=== PATIENT | male | born 1990 | race Caucasian/White ===

== ENCOUNTER 2020-10-24 03:49 | Emergency (ER) | payer BC ==
--- NOTE | 2020-10-24 03:57 | EDM.PDOC ---
ED HPI GENERAL MEDICAL PROBLEM - General Chief Complaint: Respiratory Problem Stated Complaint: COVID POSITIVE Time Seen by Provider: 10/24/20 03:50 Source of Information: Reports: Patient History Limitations: Reports: No Limitations - History of Present Illness INITIAL COMMENTS - FREE TEXT/NARRATIVE: 30-year-old male with no PMHx presents with COVID symptoms. He started devel oping symptoms on 10/14, including fever, chills, headache, generalized malaise, cough. He was tested positive on 10/19, followed by left upper quadrant pain and 5 episodes of watery bloody diarrhea on 10/20, along with 3 episodes of nonbloody vomitus after heavy coughing, decreased appetite, changes in smell. He has not been able to sleep over the last 2 days despite his generalized malaise citing his mind races in his sleep. He went to respiratory clinic on 10/19 and was prescribed dexamethasone and azithromycin which he stopped after seeing the bloody diarrhea. He has only been taking Tylenol and multivitamin since. ROS: A 10-point review of systems, other than pertinent positives and negatives as stated per HPI, is otherwise negative Past medical history: No additional pertinent history Past Surgical history: No additional pertinent history Social history: No additional pertinent history Family history: No additional pertinent history PHYSICAL EXAM General: AOx4, GCS = 15, no distress HEENT: dry mucous membrane Neck: supple, no meningismus, no Kernig or Brudzinski Cardiac: S1S2 tachycardia Respiratory: CTAB, no crackles or rales, no wheezing, no retraction, no tachypnea, no respiratory distress. Abdomen: Soft, mild LUQ ttp, no rebound or guarding, nondistended, no pulsatile mass. Back: nontender Musculoskeletal: NVI distally, no deformity Neuro: No focal deficits ULQ Pain Score (Numeric/FACES): 2 - Related Data Allergies Allergy/AdvReac Type Severity Reaction Status Date / Time No Known Allergies Allergy Verified 10/24/20 04:05 Home Meds: Home Meds Azithromycin [Zithromax] 0 mg PO DAILY 10/24/20 [History] Benzonatate 100 mg PO BID #10 capsule 10/24/20 [Rx] Omeprazole Magnesium [Prilosec Otc] 20 mg PO BID #30 tablet. 10/24/20 [Rx] dexAMETHasone [Dexamethasone] 0 mg PO ASDIRECTED 10/24/20 [History] ED ROS GENERAL - Review of Systems Review Of Systems: See Below (see dictation) ED EXAM, GENERAL - Physical Exam Exam: See Below (see dictation) #1 Interpretation EKG Interpretation Comments: Heart rate = 99 bpm, normal sinus rhythm, normal QRS interval, no STEMI. EKG and rhythm strip interpreted by me at 0518 Course - Vital Signs Last Recorded V/S: Last Vital Signs Temp 99.9 F 10/24/20 04:07 Pulse 99 10/24/20 05:28 Resp 20 10/24/20 05:28 BP 109/76 10/24/20 05:28 Pulse Ox 92 L 10/24/20 05:28 - Orders/Labs/Meds Orders: Active Orders 24 hr Category Date Time Status EKG Documentation Completion [RC] STAT Care 10/24/20 04:32 Active Nurse Communication: Isolation [RC] ASDIRECTED Care 10/24/20 04:32 Active CULTURE BLOOD [BC] Stat Lab 10/24/20 05:10 Received CULTURE BLOOD [BC] Stat Lab 10/24/20 05:25 Received PROCALCITONIN [REF] Stat Lab 10/24/20 05:10 Received Blood Culture x2 Reflex Set [OM.PC] Stat Oth 10/24/20 04:56 Ordered Isolation [COMM] Stat Oth 10/24/20 04:31 Active Labs: Laboratory Tests 10/24/20 10/24/20 10/24/20 Range/Units 05:10 05:10 05:10 WBC 6.92 (4.0-11.0) K/uL RBC 5.09 (4.50-5.90) M/uL Hgb 15.5 (13.0-17.0) g/dL Hct 44.2 (38.0-50.0) % MCV 86.8 (80.0-98.0) fL MCH 30.5 (27.0-32.0) pg MCHC 35.1 (31.0-37.0) g/dL RDW Std Deviation 39.8 (28.0-62.0) fl RDW Coeff of Asmara 12 (11.0-15.0) % Plt Count 228 (150-400) K/uL MPV 10.10 (7.40-12.00) fL Neut % (Auto) 77.6 (48.0-80.0) % Lymph % (Auto) 16.0 (16.0-40.0) % Beckham % (Auto) 6.1 (0.0-15.0) % Eos % (Auto) 0.0 (0.0-7.0) % Baso % (Auto) 0.3 (0.0-1.5) % Neut # (Auto) 5.4 (1.4-5.7) K/uL Lymph # (Auto) 1.1 (0.6-2.4) K/uL Beckham # (Auto) 0.4 (0.0-0.8) K/uL Eos # (Auto) 0.0 (0.0-0.7) K/uL Baso # (Auto) 0.0 (0.0-0.1) K/uL Nucleated RBC % 0.0 /100WBC Nucleated RBCs # 0 K/uL ESR (0-14) mm/hr INR 1.06 D-Dimer, Quantitative (0.0-0.50) mg/L FEU Lactate (0.20-2.00) mmol/L Sodium 134 L (136-148) mmol/L Potassium 3.2 L (3.5-5.1) mmol/L Chloride 95 L (98-107) mmol/L Carbon Dioxide 25.5 (21.0-32.0) mmol/L BUN 8 (7.0-18.0) mg/dL Creatinine 1.1 (0.8-1.3) mg/dL Est Cr Clr Drug Dosing 99.55 mL/min Estimated GFR (MDRD) > 60.0 ml/min Glucose 99 (74-106) mg/dL Calcium 8.3 L (8.5-10.1) mg/dL Ferritin (26-388) ng/mL Total Bilirubin 0.8 (0.2-1.0) mg/dL Direct Bilirubin 0.20 (0.0-0.5) mg/dL Indirect Bilirubin 0.60 AST 63 H (15-37) IU/L ALT 61 (14-63) IU/L Alkaline Phosphatase 41 L (46-116) U/L Lactate Dehydrogenase 549 H (81-234) U/L Creatine Kinase 1919 H (26-308) U/L Troponin I < 0.050 (0.000-0.056) ng/mL C-Reactive Protein 9.10 H (0.00-0.90) mg/dL Total Protein 7.9 (6.4-8.2) g/dL Albumin 3.6 (3.4-5.0) g/dL Globulin 4.3 H (2.6-4.0) g/dL Albumin/Globulin Ratio 0.8 L (0.9-1.6) 10/24/20 10/24/20 10/24/20 Range/Units 05:10 05:10 05:10 WBC (4.0-11.0) K/uL RBC (4.50-5.90) M/uL Hgb (13.0-17.0) g/dL Hct (38.0-50.0) % MCV (80.0-98.0) fL MCH (27.0-32.0) pg MCHC (31.0-37.0) g/dL RDW Std Deviation (28.0-62.0) fl RDW Coeff of Samara (11.0-15.0) % Plt Count (150-400) K/uL MPV (7.40-12.00) fL Neut % (Auto) (48.0-80.0) % Lymph % (Auto) (16.0-40.0) % Beckham % (Auto) (0.0-15.0) % Eos % (Auto) (0.0-7.0) % Baso % (Auto) (0.0-1.5) % Neut # (Auto) (1.4-5.7) K/uL Lymph # (Auto) (0.6-2.4) K/uL Beckham # (Auto) (0.0-0.8) K/uL Eos # (Auto) (0.0-0.7) K/uL Baso # (Auto) (0.0-0.1) K/uL Nucleated RBC % /100WBC Nucleated RBCs # K/uL ESR (0-14) mm/hr INR D-Dimer, Quantitative 0.80 H (0.0-0.50) mg/L FEU Lactate 1.3 (0.20-2.00) mmol/L Sodium (136-148) mmol/L Potassium (3.5-5.1) mmol/L Chloride (98-107) mmol/L Carbon Dioxide (21.0-32.0) mmol/L BUN (7.0-18.0) mg/dL Creatinine (0.8-1.3) mg/dL Est Cr Clr Drug Dosing mL/min Estimated GFR (MDRD) ml/min Glucose (74-106) mg/dL Calcium (8.5-10.1) mg/dL Ferritin 799 H (26-388) ng/mL Total Bilirubin (0.2-1.0) mg/dL Direct Bilirubin (0.0-0.5) mg/dL Indirect Bilirubin AST (15-37) IU/L ALT (14-63) IU/L Alkaline Phosphatase (46-116) U/L Lactate Dehydrogenase (81-234) U/L Creatine Kinase (26-308) U/L Troponin I (0.000-0.056) ng/mL C-Reactive Protein (0.00-0.90) mg/dL Total Protein (6.4-8.2) g/dL Albumin (3.4-5.0) g/dL Globulin (2.6-4.0) g/dL Albumin/Globulin Ratio (0.9-1.6) 10/24/20 Range/Units 05:10 WBC (4.0-11.0) K/uL RBC (4.50-5.90) M/uL Hgb (13.0-17.0) g/dL Hct (38.0-50.0) % MCV (80.0-98.0) fL MCH (27.0-32.0) pg MCHC (31.0-37.0) g/dL RDW Std Deviation (28.0-62.0) fl RDW Coeff of Samara (11.0-15.0) % Plt Count (150-400) K/uL MPV (7.40-12.00) fL Neut % (Auto) (48.0-80.0) % Lymph % (Auto) (16.0-40.0) % Beckham % (Auto) (0.0-15.0) % Eos % (Auto) (0.0-7.0) % Baso % (Auto) (0.0-1.5) % Neut # (Auto) (1.4-5.7) K/uL Lymph # (Auto) (0.6-2.4) K/uL Beckham # (Auto) (0.0-0.8) K/uL Eos # (Auto) (0.0-0.7) K/uL Baso # (Auto) (0.0-0.1) K/uL Nucleated RBC % /100WBC Nucleated RBCs # K/uL ESR 46 H (0-14) mm/hr INR D-Dimer, Quantitative (0.0-0.50) mg/L FEU Lactate (0.20-2.00) mmol/L Sodium (136-148) mmol/L Potassium (3.5-5.1) mmol/L Chloride (98-107) mmol/L Carbon Dioxide (21.0-32.0) mmol/L BUN (7.0-18.0) mg/dL Creatinine (0.8-1.3) mg/dL Est Cr Clr Drug Dosing mL/min Estimated GFR (MDRD) ml/min Glucose (74-106) mg/dL Calcium (8.5-10.1) mg/dL Ferritin (26-388) ng/mL Total Bilirubin (0.2-1.0) mg/dL Direct Bilirubin (0.0-0.5) mg/dL Indirect Bilirubin AST (15-37) IU/L ALT (14-63) IU/L Alkaline Phosphatase (46-116) U/L Lactate Dehydrogenase (81-234) U/L Creatine Kinase (26-308) U/L Troponin I (0.000-0.056) ng/mL C-Reactive Protein (0.00-0.90) mg/dL Total Protein (6.4-8.2) g/dL Albumin (3.4-5.0) g/dL Globulin (2.6-4.0) g/dL Albumin/Globulin Ratio (0.9-1.6) Meds: Medications Discontinued Medications Generic Name Dose Route Start Last Admin Trade Name Diamante PRN Reason Stop Dose Admin Azithromycin 500 mg 10/24/20 06:22 10/24/20 06:28 Zithromax PO 10/24/20 06:23 500 mg NOW STA Administration Lactated Ringer's 1,000 mls @ 999 mls/hr 10/24/20 04:32 10/24/20 05:08 Ringers, Lactated IV 10/24/20 05:32 999 mls/hr .BOLUS ONE Administration Pantoprazole Sodium 40 mg/ 20 mls @ 420 mls/hr 10/24/20 04:34 10/24/20 05:08 Sodium Chloride IVPUSH 10/24/20 04:36 420 mls/hr ONETIME ONE Administration Azithromycin 500 mg/ Sodium 250 mls @ 250 mls/hr 10/24/20 06:00 Chloride IV ONETIME YANDY Ceftriaxone Sodium/Dextrose 1 50 mls @ 100 mls/hr 10/24/20 05:52 10/24/20 06:28 gm/ Premix IV 10/24/20 06:21 100 mls/hr ONETIME ONE Administration Ondansetron HCl 4 mg 10/24/20 04:32 10/24/20 05:08 Zofran IVPUSH 10/24/20 04:33 4 mg ONETIME ONE Administration - Re-Assessments/Exams Free Text/Narrative Re-Assessment/Exam: 10/24/20 06:55 He is currently stable for discharge. I performed a repeat exam and did not appreciate new abnormal findings. Patient exhibits normal vital signs and is not in respiratory distress, he has no retractions or tachypnea, he can speak full sentences. I did give him IV Abx here, and advised the patient to return to the ER for reevaluation if symptoms worsened, including fever, worsening pain, or any other worrisome symptoms. I instructed the patient to continue taking his dexamethasone and azithromycin as previously prescribed, and to follow up with their PCP within 2-3 days. I informed him of the lung nodule found on CT and requested him to follow-up with his PCP. MEDICAL DECISION MAKING: I reviewed the patients past medical records, lab and radiographic findings. I discussed the case with the patient. My differential diagnosis included: COVID, PNA This patient was evaluated for the symptoms described in the history of present illness. They were evaluated in the context of the global COVID-19 pandemic, which necessitated consideration that the patient might be at risk for infection with the SARS-CoV-2 virus that causes COVID-19. Institutional protocols and algorithms that pertain to the evaluation of patients at risk for COVID-19 are in a state of rapid change based on information released by regulatory bodies including the CDC and federal and state organizations. These policies and algorithms were followed during the patient's care. I wore full PPE, N95, face shield, gown and gloves throughout my evaluation and care of this patient. I recommended home isolation. given home isolation instructions. The patient is well appearing, not in respiratory distress, not hypoxic, no tachyneia, no retractions. I instructed patient to return immediately for worsening symptoms, sob, chest pain, lightheadedness or other concerns. Patient voiced understanding and questions answered. 10/24/20 06:38 Departure - Departure Time of Disposition: 06:50 Disposition: Home, Self-Care 01 Condition: Good Clinical Impression: Pneumonia, COVID-19, Gastritis, Lung nodule - Discharge Information *PRESCRIPTION DRUG MONITORING PROGRAM REVIEWED*: Not Applicable *COPY OF PRESCRIPTION DRUG MONITORING REPORT IN PATIENT KARIN: Not Applicable Prescriptions: Benzonatate 100 mg PO BID #10 capsule Omeprazole Magnesium [Prilosec Otc] 20 mg PO BID #30 tablet. Instructions: COVID-19 Frequently Asked Questions, Gastritis, Adult, [id number], COVID-19, Community-Acquired Pneumonia, Adult, Prevent the Spread of COVID-19 if You Are Sick - CDC, Incidental Abnormal Radiological Finding, Pulmonary Nodule, COVID-19: How to Protect Yourself and Others - CDC Referrals: PCP,None [Primary Care Provider] - Forms: ED Department Discharge Additional Instructions: The need for follow-up, as well as the timing and circumstances, are variable depending upon the specifics of your emergency department visit. If you don't have a primary care physician on staff, we will provide you with a referral. We always advise you to contact your personal physician following an emergency department visit to inform them of the circumstance of the visit and for follow-up with them and/or the need for any referrals to a consulting specialist. The emergency department will also refer you to a specialist when appropriate. This referral assures that you have the opportunity for follow-up care with a specialist. All of these measure are taken in an effort to provide you with optimal care, which includes your follow-up. Under all circumstances we always encourage you to contact your private physician who remains a resource for coordinating your care. When calling for follow-up care, please make the office aware that this follow-up is from your recent emergency room visit. If for any reason you are refused follow-up, please contact the [facility] Emergency Department at and asked to speak to the emergency department charge nurse. If you do not have a primary care doctor, please follow up with the clinics below within 3-5 days. [facility] - Primary Care [address] [place] [id number] [place] [address] Sepsis Event Note (ED) - Focused Exam Vital Signs: Vital Signs Temp Pulse Resp BP Pulse Ox 10/24/20 05:28 99 20 109/76 92 L 10/24/20 04:07 99.9 F 107 H 22 H 142/90 H 92 L - My Orders Last 24 Hours: My Active Orders 10/24/20 04:31 Isolation [COMM] Stat 10/24/20 04:32 EKG Documentation Completion [RC] STAT Nurse Communication: Isolation [RC] ASDIRECTED 10/24/20 04:56 Blood Culture x2 Reflex Set [OM.PC] Stat 10/24/20 05:10 CULTURE BLOOD [BC] Stat PROCALCITONIN [REF] Stat 10/24/20 05:25 CULTURE BLOOD [BC] Stat - Assessment/Plan Last 24 Hours: My Active Orders 10/24/20 04:31 Isolation [COMM] Stat 10/24/20 04:32 EKG Documentation Completion [RC] STAT Nurse Communication: Isolation [RC] ASDIRECTED 10/24/20 04:56 Blood Culture x2 Reflex Set [OM.PC] Stat 10/24/20 05:10 CULTURE BLOOD [BC] Stat PROCALCITONIN [REF] Stat 10/24/20 05:25 CULTURE BLOOD [BC] Stat
[2020-10-24] MEDS ORDERED: Ondansetron 4 MG/2 ML SDV IVPUSH ONE (04:32)
[2020-10-24] MEDS ORDERED: Lactated Ringers 1,000 ML IV ONE (04:32)
[2020-10-24] MEDS ORDERED: Pantoprazole 40 MG in Sodium Chloride 0.9% 20 ML IVPUSH ONE (04:34)
--- NOTE | 2020-10-24 04:44 | CR ---
HISTORY: Shortness of breath. COVID-19 positive. COMPARISON: 10/19/2020 FINDINGS: A portable erect AP view of the chest was obtained at 0426 hours. There is new mild patchy infiltrate in the periphery of the right mid and lower lungs as well as additional streaky infiltrate in the right lower lung and the left mid-lower lung. While the findings are nonspecific, the location and appearance of the infiltrates is consistent with COVID-19 infection. The rest of the chest is clear. There is no sign of any pleural effusion. The heart remains normal in size. The mediastinum is normal in appearance. The osseous structures are normal in appearance for the patient`s age. IMPRESSION: New mild patchy bilateral pulmonary infiltrates consistent with COVID-19 infection, although not specific for this. Dictated by Ruddy Umanzor MD @ Oct 24 2020 4:41AM Signed by Dr. Ruddy Umanzor @ Oct 24 2020 4:43AM
[2020-10-24 05:43] LABS: BLOOD UREA NITROGEN,BUN 8 mg/dL (7.0-18.0); CARBON DIOXIDE,CO2 25.5 mmol/L (21.0-32.0); CHLORIDE,CL 95 mmol/L (98-107); GLUCOSE RANDOM 99 mg/dL (74-106); POTASSIUM,K 3.2 mmol/L (3.5-5.1); SODIUM,NA 134 mmol/L (136-148)
[2020-10-24] MEDS ORDERED: cefTRIAXone 1 GM in Premix Bag 1 BAG IV ONE (05:52)
[2020-10-24] MEDS ORDERED: Azithromycin 500 MG in Sodium Chloride 0.9% 250 ML IV SCH (06:00)
[2020-10-24] MEDS ORDERED: Azithromycin 100 MG/5 ML Susp 15 ML Bottle PO ONE (06:18)
[2020-10-24] MEDS ORDERED: Azithromycin 250 MG Tab PO STA (06:22)
--- NOTE | 2020-10-24 06:28 | CT ---
Indication: 30-year-old male with COVID-19 infection presents with rectal bleeding and abdominal pain. Technique: A CT volumetric acquisition was performed of the abdomen and pelvis without IV contrast. Comparison: None available Findings: The lung bases demonstrate patchy bilateral ground-glass infiltrates within the visualized lower lung carrasco consistent with the history of COVID-19 infection. On image 9 there is a 6 mm subpleural nodule within the lateral basal segment the left lower lobe. Within the abdomen there is generalized hepatic steatosis. Spleen and pancreas appear normal. The gallbladder and bile ducts appear normal. The abdominal going and abnormal morphology. Kidneys appear symmetric in size. There are small nonobstructing calculi within the lower pole left kidney measuring 1 and 4 mm in size. There is no evidence of hydronephrosis. Additional small nonobstructing calculi are noted within lower pole right kidney measuring 1-3 mm. There is no evidence of retroperitoneal lymphadenopathy within the abdomen and pelvis. The appendix is visualized in the right lower quadrant and appears normal. There is normal appearance of the small intestine and small-bowel mesentery. There is no evidence of a suspicious mass or acute inflammatory change within the colon on these noncontrast enhanced images. Prostate gland and urinary bladder appear normal. Impression: Nephrolithiasis. No acute process within the abdomen and pelvis. Ground-glass infiltrates within the lung bases consistent with COVID-19 infection Incidental finding of a 6 mm subpleural nodule within the left lower lobe. This could be reassessed with a follow-up CT scan in 6-12 months time according to Fleischner society guidelines. Please note that all CT scans at this facility use dose modulation, iterative reconstruction, and/or weight-based dosing when appropriate to reduce radiation dose to as low as reasonably achievable. Dictated by Paramjit Rosa MD @ Oct 24 2020 6:18AM Signed by Dr. Paramjit Rosa @ Oct 24 2020 6:27AM
== END 2020-10-24 07:05 | disposition home or self-care (01) ==
LOC: MW.ED 03:49
DX: U07.1 COVID-19 (principal); J12.89 Other viral pneumonia; K29.70 Gastritis, unspecified, without bleeding; R91.1 Solitary pulmonary nodule; Z79.899 Other long term (current) drug therapy
CPT/HCPCS: 36415; 71045; 74176; 80048; 80076; 82550; 82728; 83605; 83615; 84145; 84484; 85025; 85379; 85610; 85652; 86140; 87040; 93005; 96365; 96375; 99284; A9270; C9113; J0696; J2405; J7120; 93010